=== PATIENT | female | born 1945 ===

== ENCOUNTER 2017-06-06 06:10 | Inpatient (IN) | payer OTHER ==
[2017-06-02 14:33] VITALS: BMI 25.8
[2017-06-06] MEDS ORDERED: Lactated Ringer's 1,000 ML IV ONE ×2 (07:00→16:08)
--- NOTE | 2017-06-06 07:38 | CP.PCM.HP ---
History of Present Illness - History of Present Illness History of Present Illness: Chief Complaint: Left Knee Pain HPI: 71 y/o lady with hx of HTN, Hyperlipidemia and OA, came in for scheduled left TKR. The patient has been suffering from severe left knee pain for many years. She has severe pain on ambulation worst when she goes up and down the stairs. She takes analgesics daily and has had joint injections and physical therapy however despite these her pain continued to worsen so she was referred to Dr Montero and was advised surgery. Present on Admission - Present on Admission Any Indicators Present on Admission: No Review of Systems - Review of Systems All systems: reviewed and no additional remarkable complaints except - Constitutional Constitutional: absent: Fever, Headache - EENT Eyes: absent: Change in Vision Nose/Mouth/Throat: absent: Epistaxis, Nasal Congestion, Nasal Discharge - Cardiovascular Cardiovascular: absent: Chest Pain, Chest Pain at Rest, Chest Pain with Activity , Claudication, Dyspnea on Exertion, Edema - Respiratory Respiratory: absent: Cough, Dyspnea, Dyspnea on Exertion - Gastrointestinal Gastrointestinal: absent: Abdominal Pain, Nausea, Vomiting - Genitourinary Genitourinary: Nocturia, Urinary Frequency. absent: Difficulty Urinating, Dysuria, Flank Pain, Hematuria - Reproductive: Female Reproductive:Female: absent: Abnormal Vaginal Bleeding, Vaginal Odor, Vaginal Pruritis - Musculoskeletal Musculoskeletal: Abnormal Gait, Arthralgias, Limited Range of Motion, Stiffness. absent: Muscle Weakness - Integumentary Integumentary: Change in Pigmentation (lower ext). absent: Rash, Skin Ulcer, Sores - Neurological Neurological: absent: Dizziness, Focal Weakness, Headaches, Lack of Coordination - Psychiatric Psychiatric: absent: Confusion, Depression, Memory Loss - Endocrine Endocrine: absent: Polydipsia, Polyphagia, Polyuria - Hematologic/Lymphatic Hematologic: absent: Easy Bleeding, Easy Bruising Past Patient History - Infectious Disease Hx of Infectious Diseases: None - Tetanus Immunizations Tetanus Immunization: Unknown - Past Medical History & Family History Past Medical History?: Yes Past Family History: Reviewed and not pertinent - Past Social History Smoking Status: Never Smoked Chewing Tobacco Use: No Cigar Use: No Alcohol: Occasional Drugs: Denies Home Situation {Lives}: With Family Domestic Violence: Negative - CARDIAC Hx Cardiac Disorders: Yes Hx Hypercholesterolemia: Yes Hx Hypertension: Yes - PULMONARY Hx Respiratory Disorders: No - NEUROLOGICAL Hx Neurological Disorder: No - HEENT Hx HEENT Problems: No - RENAL Hx Chronic Kidney Disease: No - ENDOCRINE/METABOLIC Hx Endocrine Disorders: No - HEMATOLOGICAL/ONCOLOGICAL Hx Blood Disorders: No - INTEGUMENTARY Hx Dermatological Problems: No - MUSCULOSKELETAL/RHEUMATOLOGICAL Hx Musculoskeletal Disorders: Yes Hx Arthritis: Yes Hx Osteoarthritis: Yes - GASTROINTESTINAL Hx Gastrointestinal Disorders: No - GENITOURINARY/GYNECOLOGICAL Hx Genitourinary Disorders: No - PSYCHIATRIC Hx Psychophysiologic Disorder: No - SURGICAL HISTORY Hx Surgeries: No - ANESTHESIA Hx Anesthesia: No Hx Anesthesia Reactions: No Hx Malignant Hyperthermia: No Has any member of the family had a problem w/ anesthesia?: No Meds Allergies/Adverse Reactions: Allergies Allergy/AdvReac Type Severity Reaction Status Date / Time No Known Allergies Allergy Verified 06/02/17 14:32 Physical Exam - Constitutional Appears: Non-toxic, No Acute Distress - Head Exam Head Exam: ATRAUMATIC, NORMAL INSPECTION, NORMOCEPHALIC - Eye Exam Eye Exam: EOMI, Normal appearance Pupil Exam: NORMAL ACCOMODATION - ENT Exam ENT Exam: Mucous Membranes Moist, Normal External Ear Exam - Neck Exam Neck exam: Positive for: Full Rom. Negative for: Meningismus - Respiratory Exam Respiratory Exam: NORMAL BREATHING PATTERN. absent: Rales, Wheezes, Respiratory Distress - Cardiovascular Exam Cardiovascular Exam: REGULAR RHYTHM, +S1, +S2 - GI/Abdominal Exam GI & Abdominal Exam: Normal Bowel Sounds, Soft. absent: Tenderness - Extremities Exam Extremities exam: Positive for: normal capillary refill, pedal pulses present. Negative for: calf tenderness, full ROM, pedal edema - Back Exam Back exam: FULL ROM. absent: CVA tenderness (L), CVA tenderness (R), paraspinal tenderness, vertebral tenderness - Neurological Exam Neurological exam: Alert, CN II-XII Intact, Oriented x3, Reflexes Normal - Psychiatric Exam Psychiatric exam: Normal Affect, Normal Mood - Skin Skin Exam: Dry, Normal Color, Warm Results - Vital Signs Recent Vital Signs: Last Vital Signs Temp 98.8 F 06/06/17 07:00 Pulse 61 06/06/17 07:00 Resp 18 06/06/17 07:00 BP 102/63 06/06/17 07:00 Pulse Ox 97 06/06/17 07:00 - Labs Labs: Laboratory Results - last 24 hr 06/06/17 06:40 BBK History Checked No verified bt reviewed labs done as outpt UA showed + leukocyte esterase 10WBC - EKG Data EKG Interpreted by: Myself EKG shows normal: Sinus rhythm Rate: Normal Assessment & Plan (1) Primary osteoarthritis of knee Status: Chronic (2) HTN (hypertension) Status: Chronic (3) Hyperlipidemia Status: Chronic (4) UTI (urinary tract infection) Status: Suspected - Assessment and Plan (Free Text) Assessment: 71 y/o lady with hx of HTN, Hyperlipidemia, OA, complains of left knee pain. Failed conservative mgt ( analgesics, joint inj, and Physical therapy ) , scheduled for Left TKR. Urinalysis : moderate leukoesterase, WBC=10, has urinary frequency. (1) Primary osteoarthritis of knee Status: Chronic Plan for Left TKR Ortho : Dr Kylah Corona mgt Physical and Occupational therapy conult Pre op eval done by her PMD : DR Anel Bahena (2) HTN (hypertension) controlled Status: Chronic cont Enalapril (3) Hyperlipidemia Status: Chronic cont statin (4) UTI (urinary tract infection) Status: Suspected UA : mod leukoest, WBC=10, frequency of urination will give dose of IV ceftriaxone Decision To Admit - Pt Status Changed To: Hospital Disposition Of: Inpatient - Admit Certification Admit to Inpatient:: After my assessment, the patient will require hospitalization for at least two midnights. This is because of the severity of symptoms shown, intensity of services needed, and/or the medical risk in this patient being treated as an outpatient. - . Bed Request Type: Med/Surg Admitting Physician: Briana Camacho
[2017-06-06] MEDS ORDERED: cefTRIAXone (Rocephin) 1 gm Inj IVPB ONE (09:00)
[2017-06-06] MEDS ORDERED: Ropivacaine 0.5% 30ML IV ONE (12:58)
[2017-06-06] MEDS ORDERED: Propofol 10 mg/ml Inj (20 ML) ONE (12:59)
[2017-06-06] MEDS ORDERED: Rocuronium 10 mg/ml (5 ml) ONE (12:59)
[2017-06-06] MEDS ORDERED: Lidocaine 4% (Laryng-O-Jet) Kit MM ONE (13:00)
[2017-06-06] MEDS ORDERED: Succinylcholine 200 mg/10 ml Inj IV ONE (13:00)
[2017-06-06] MEDS ORDERED: Phenylephrine 10 mg/ml Inj ONE (13:05)
[2017-06-06] MEDS ORDERED: Dexamethasone 4 mg/1 ml ONE (13:30)
[2017-06-06] MEDS ORDERED: ePHEDrine 50 mg/ml Inj ONE (14:40)
[2017-06-06] MEDS ORDERED: Neostigmine Methylsulfate 3mg/3ml Syringe IV ONE ×2 (14:47→15:02)
[2017-06-06] MEDS ORDERED: Sevoflurane - Inhalation Anesthetic Liq (250 ml) ONE (14:59)
[2017-06-06] MEDS ORDERED: Ergocalciferol 50,000 Intl Units Cap PO SCH (15:15)
[2017-06-06] MEDS ORDERED: HYDROmorphone 0.5 mg/0.5 ml ISec IVP PRN ×2 (16:40→16:56)
--- NOTE | 2017-06-06 16:44 | PCM.ANESB3 ---
Femoral Nerve Block - Femoral Nerve Block Date of Procedure: 06/06/17 Anesthesiologist: frida Pre-Procedure Diagnosis: left TKA Post-Procedure Diagnosis: Left knee OA - Procedure Femoral Nerve Block: The procedure was explained to the patient that it is for the post-operative pain management. Consent was obtained after a thorough discussion with the patient regarding the benefits and possible complications of local anesthetic block of the femoral nerve at the inguinal crease area. The patient was brought to the operating room and standard monitors were applied. Time-out was held with the circulating nurse to confirm the correct surgery and the appropriate block. Under general anesthesia, patient was placed in supine position with fully extended lower extremities and the ____left____ groin exposed. The femoral artery was then carefully palpated. The ultrasound transducer was then applied to this area in the transverse plane and the femoral nerve was visualized lateral to the femoral artery and underneath the fascia iliaca. After thorough identification, the inguinal crease area was prepped with Betadine solution three times and 1 % Lidocaine was injected subcutaneously for topical anesthesia. At this point, a #22 gauge Stimuplex 2-inch needle was inserted immediately lateral to the femoral artery pulse at the inguinal crease and advanced perpendicularly. The needle was inserted to the ultrasound transducer in-plane towards the femoral nerve in a [id number] direction. Needle advancement was performed carefully under direct ultrasound visualization. Nerve stimulator was used and twitch of the quadriceps muscle was obtained at current of __0.6___ MA. After negative aspiration, __2___cc of ___0.5__% ___ropivicaine with 4 mg decadron was injected and this was followed with 10_ cc of ___0.5% ropivicaine . Under ultrasound guidance the local anesthetics were observed spreading below fascia iliaca and around the femoral nerve. The needle was removed intact and sterile dressing was applied. The patient had stable vital signs, was conscious and in no apparent distress. The patient tolerated the femoral nerve block well with stable vital signs and was prepared for subsequent surgery.
--- NOTE | 2017-06-06 16:46 | PCM.ANESB2 ---
Popliteal Nerve Block - Popliteal Nerve Block Date of Procedure: 06/06/17 Anesthesiologist: Delaney Pre-Procedure Diagnosis: Left knee OA Post-Procedure Diagnosis: Same - Procedure Popliteal Nerve Block: This procedure was explained to the patient that it is for post-operative pain management. Consent was obtained after a thorough discussion with the patient regarding the benefits and possible complications of local anesthetic block of the sciatic nerve at the popliteal level. The patient was brought to the operating room and standard monitors are applied. Time-out was held with the circulating nurse to confirm the correct surgery and the appropriate block. Under general anesthesia, patient's operative leg was gently raised and supported and the groove in between the biceps femoris and vastus lateralis muscles was carefully palpated. The skin approximately 8cm above the popliteal crease was then marked. The ultrasound transducer was then applied to the posterior thigh approximately 8cm above the popliteal crease in the transverse plane and the sciatic nerve before its division was visualized lateral to the popliteal artery and in between the bicep femoris and semimembranosus/ semitendinosus muscles. After identification, the lateral portion of the thigh was prepped with Betadine solution three times and Lidocaine 1% was injected subcutaneously for topical anesthesia. At this point, a # 21 gauge Stimuplex insulated 4 inch needle was inserted into pre-marked area and advanced in a perpendicular direction. The needle was inserted above the ultrasound transducer in-plane towards the sciatic nerve in a [id number] direction. Needle advancement was performed carefully under direct ultrasound visualization. Nerve stimulator was used and dorsiflexion of the foot was elicited at a current of ___0.6__ MA. After repeated negative aspiration, ____2_cc of ___0.5__ % __ropivicaine with decadron ____ was injected and this was flowed with __10____ cc of ___0.5___% ropivicaine . Under ultrasound guidance the local anesthetics were observed tenting the epidural sheath and surrounding the roots of the sciatic nerve. The needle was removed intact and sterile dressing was applied. The patient tolerated the popliteal nerve block well with stable vital signs and was subsequently prepared for the surgery.
--- NOTE | 2017-06-06 18:51 | PCM.SURG1 ---
Surgeon's Initial Post Op Note - Surgeon's Notes Surgeon: Kylah Cellophane Press Operator: ZOYA Bird Type of Anesthesia: General Endo Anesthesia Administered By: Dr Baltazar Pre-Operative Diagnosis: Severe tricompartmental O/A L knee Operative Findings: - as above. -loose bodies L knee. -severe synovitis L knee. posterior capsular contracture. lateral patella contracture Post-Operative Diagnosis: as above Operation Performed: L TKR. arthrotomy- excision loose bodies. arthrotomy- posterior capsular release. lateral patella retinacular release. arthrotmy anterior and posterior synovectomy Specimen/Specimens Removed: loose bodies/bone/cartilage Estimated Blood Loss: EBL {In ML}: 150 Blood Products Given: N/A Drains Used: No Drains Post-Op Condition: Good Date of Surgery/Procedure: 06/06/17 Time of Surgery/Procedure: 14:10 (time in room/anesthesia induction time 1305)
[2017-06-06] MEDS ORDERED: Pneumococcal 23-Valent Vaccine IM ONE (20:00)
[2017-06-06] MEDS: ceFAZolin 1 GM in Sodium Chloride 0.9% 100 ML IVPB SCH (21:21)
[2017-06-06] MEDS: Pravastatin Sodium 40 MG TAB PO SCH (21:22)
[2017-06-07] MEDS: Lactated Ringer's 1,000 ML IV SCH ×3 (00:42→16:44)
[2017-06-07] MEDS: ceFAZolin 1 GM in Sodium Chloride 0.9% 100 ML IVPB SCH ×3 (05:19→06:31)
[2017-06-07 07:44] LABS: BASO % 0.1 % (0.0-2.0); HEMOGLOBIN 8.1 g/dL (12.0-16.0); LYMPH # 0.7 K/uL (1.0-4.3); LYMPH % 7.4 % (20.0-40.0); MEAN CELL VOLUME 66.1 fl (81.0-99.0); MEAN CORPUSCULAR HEMOGLOBIN 21.1 pg (27.0-31.0); MONO # 0.7 K/uL (0.0-0.8); MONO % 7.5 % (0.0-10.0); NEUT # 7.9 K/uL (1.8-7.0); NRBC % 0.1 % (0.0-0.0); PLATELET COUNT 157 K/uL (130-400); RBC 3.81 Mil/uL (3.80-5.20); RED CELL DISTRIBUTION WIDTH 15.5 % (11.5-14.5); WHITE BLOOD COUNT 9.3 K/uL (4.8-10.8)
[2017-06-07 08:14] LABS: BLOOD UREA NITROGEN 11 mg/dl (7-17); CALCIUM 8.8 mg/dL (8.4-10.2)
--- NOTE | 2017-06-07 08:42 | PCM.OP ---
Operative Report - Operative Report Date of Surgery/Procedure: 06/06/17 Time of Surgery/Procedure: 13:40 (time in room 12:30) Surgeon: Kylah Marine Steam Fitter: ZOYA Bird/ Hero Barbosa Anesthesia/Sedation: GETA Pre-Operative Diagnosis: Severe O/A l kNEE WITH DEFORMITY AND LOOSE BODIES Post-Operative Diagnosis: ABOPVE. LOOSE BODIES. SYNOVITIS l KNEE - aNT AND POSTERIOR. POSTERIOR capsular contracture. lateral patella contracture Indication for Surgery: svere pain, deformity and inability to ambulate Operative Findings: as above Procedure/Operation Description: L TKR. arthrotmy anterior and posterior synovectomy. arthrotomy excision loose body. posterior capsular release. lateral patella release. computernavigation. Operative procedure: Date 2016/ left knee as the correct knee. Operative procedure after having obtained informed consent, after thoroughly discussing the pros cause risks and benefits of knee replacement arthroplasty, after failure of conservative management one year, after the satisfactory induction of the anesthetic after having identified side and site and procedure and the cortical pause/timeout left lower extremity was prepped and free draped in the usual fashion for knee replacement arthroplasty. 370 mm a 6 inch Esmarch bandage the tourniquet which had been applied was inflated to 350 mmHg. A 16 straight midline approach was made to the knee. The patient has marked deformity with severe varus deformity and loose bodies in the posterior compartment. Skin incision was carried as of the skin subcutaneous tissue. Arthrotomy having been accomplished, dissection was carried around posteromedially to the semimembranosus tendon. Anterior and posterior cruciate ligaments were excised. The tibia was dislocated anteriorly and therte are found to be loose bodies and cystin the posterior compartment. Anterior and posterior synovectomies are accomplished. medial and lateral meniscectomies are accomplished. Anterior and posterior cruciate ligaments are excised. At this point. Navigation is employed. The anterior tibial strut was placed and affixed to the anterior aspect of the tibia. Accelorometer and sensor are applied. The medial malleolus and lateral malleolus are registered and the alignment of the tibial cut is set to 0 varus valgus with a posterior slope of 3. The depth is 1 mm below the more deformed tibial condyle. Tibial osteotomies accomplished and guides to mrotation are the latrasl aspect of the tibial condyle and mid malleolar axis. The guide pin was placed superior to the intracondylar notch; accelorometer and sensor are placed. The patient was found 0 varus valgus mechanical axis and flexion of 0.5. Distal cut was accomplished as the #2 femoral component. Femoral block was placed along the epicondylar axis. Anterior and posterior osteotomies were accomplished chamfer cuts were accomplished and the posterior capular contracture is released./ Loose bodies are removed from the posterior comartment. Notch cutting guiide is placed and the notch is osteotomized. Trial femoral and tibial components were placed with an 18 mm tibial polyethylene. Flexion-extension balance to be excellent. Posterior capsule having been released a lateral patellofemoral retinacular release accomplished as well. attentioin is turned to the patella. Freehand patella osteotomy is accomplished and the patella is sized to 35 mm Reaming is accomplished. trialing is accomplished with femoral, tibial and patella components. balance is found to be excellent. Femur, tibia and patella are prepared, and the femoral, tibial and patella comoneents are cmeneted. position is found to be excellent. closure is in layers with fiber wire, vicryl, subcutaneous vicry and alphonso for skin. Jose morillo compressioin dressing is applied. post op xrays reveal acceptable positin of construct, especially for such a sever deformity. Jose Morillo compression dressing is applied . End OP note for pt Carly Schmitt/ Estimated Blood Loss: 175cc Blood Replaced: 0 Sponge/Instrument Count: correct Drains: 0 Complications: none Specimen: synovium, loose bodies, bone , synovium Discharge & Condition: stable
[2017-06-07 09:04] LABS: GFR AFRICAN-AMERICAN > 60; GFR NON-AFRICAN AMERICAN > 60
[2017-06-07] MEDS: Oxycodone/Acetaminophen 5/325 mg Tab PO PRN ×2 (10:00→21:29)
[2017-06-07 12:56] LABS: BANDS 1 % (0-2); LYMPHOCYTE 10 % (20-50); MONOCYTE 8 % (0-10); NEUTROPHIL 81 % (42-75); PLATELET ESTIMATE NORMAL (NORMAL); TOTAL CELLS COUNTED 100
[2017-06-07 12:57] LABS: ANISOCYTOSIS SLIGHT; HYPOCHROMIC SLIGHT; MICROCYTOSIS MODERATE
[2017-06-07 12:58] LABS: OVALOCYTES SLIGHT; TEARDROP CELLS SLIGHT
--- NOTE | 2017-06-07 13:22 | CP.PCM.PN ---
Subjective - Date & Time of Evaluation Date of Evaluation: 06/07/17 Time of Evaluation: 13:00 - Subjective Subjective: No fevr Pt complains of LLE numbness - pt had nerve block pain controlled no CP no SOB no abd pain Objective - Vital Signs/Intake and Output Vital Signs (last 24 hours): Temp Pulse Resp BP Pulse Ox 98.2 F 78 18 94/63 L 96 06/07/17 09:00 06/07/17 09:00 06/07/17 09:00 06/07/17 09:00 06/07/17 09:00 - Medications Medications: Current Medications Ergocalciferol (Drisdol 50,000 Intl Units Cap) 1 cap PO QWK [facility] Ferrous Sulfate (Feosol) 325 mg PO BID [facility] Last Admin: 06/07/17 09:17 Dose: 325 mg Lactated Ringer's (Lactated Ringer's) 1,000 mls @ 100 mls/hr IV .Q10H [facility] Last Admin: 06/07/17 03:00 Dose: Not Given Oxycodone/Acetaminophen (Percocet 5/325 Mg Tab) 1 tab PO Q4 PRN PRN Reason: Pain, moderate (4-7) Stop: 06/10/17 09:17 Last Admin: 06/07/17 10:00 Dose: 1 tab Pravastatin Sodium (Pravachol) 40 mg PO HS [facility] Last Admin: 06/06/17 21:22 Dose: 40 mg - Labs Labs: 06/07/17 05:00 06/07/17 05:00 - Constitutional Appears: Non-toxic, No Acute Distress - Head Exam Head Exam: ATRAUMATIC, NORMAL INSPECTION, NORMOCEPHALIC - Eye Exam Eye Exam: EOMI, Normal appearance Pupil Exam: NORMAL ACCOMODATION - ENT Exam ENT Exam: Mucous Membranes Moist, Normal External Ear Exam - Neck Exam Neck exam: Positive for: Full Rom. Negative for: Meningismus - Respiratory Exam Respiratory Exam: NORMAL BREATHING PATTERN. absent: Rales, Wheezes, Respiratory Distress - Cardiovascular Exam Cardiovascular Exam: REGULAR RHYTHM, +S1, +S2 - GI/Abdominal Exam GI & Abdominal Exam: Normal Bowel Sounds, Soft. absent: Tenderness - Extremities Exam Extremities exam: Positive for: normal capillary refill, pedal pulses present. Left LLE with dressing, some numbness and decrease motor fxn ( pt had nerve block) - Back Exam Back exam: FULL ROM. absent: CVA tenderness (L), CVA tenderness (R), paraspinal tenderness, vertebral tenderness - Neurological Exam Neurological exam: Alert, CN II-XII Intact, Oriented x3, Reflexes Normal - Psychiatric Exam Psychiatric exam: Normal Affect, Normal Mood - Skin Skin Exam: Dry, Normal Color, Warm Assessment and Plan (1) Primary osteoarthritis of knee Status: Chronic (2) HTN (hypertension) Status: Chronic (3) Hyperlipidemia Status: Chronic (4) UTI (urinary tract infection) Status: Suspected - Assessment and Plan (Free Text) Assessment: 71 y/o lady with hx of HTN, Hyperlipidemia, OA, complains of left knee pain. Failed conservative mgt ( analgesics, joint inj, and Physical therapy ) , scheduled for Left TKR. Urinalysis : moderate leukoesterase, WBC=10, urinary frequency. (1) Primary osteoarthritis of knee s/p Left TKR Ortho : Dr Montero Pain mgt: Percocet Pt had Nerve Block post op -Anesthesia called to re-eval pt Physical and Occupational therapy consult Pre op eval done by her PMD : DR Anel Bahena Received Ancef x 3 doses for abx Prophylaxis (2) HTN (hypertension) controlled Status: Chronic hold Enalapril - BPlow (3) Hyperlipidemia Status: Chronic cont statin (4) UTI (urinary tract infection) Status: Suspected UA : mod leukoest, WBC=10, frequency of urination IV ceftriaxone x 3 days only (5) Anemia, acute blood loss Hgb= 8.1 transfuse 1 unit PRBC Ferrous bid DVT proph: Aspirin bid
--- NOTE | 2017-06-07 14:54 | RAD ---
PROCEDURE: Left Knee Radiographs. HISTORY: Pain. COMPARISON: None. FINDINGS: BONES: Status post total knee replacement. No osseous fracture. Prosthesis grossly intact. Postoperative changes in anterior subcutaneous soft tissues. JOINTS: As above JOINT EFFUSION: None. OTHER FINDINGS: None. IMPRESSION: Left total knee replacement.
[2017-06-07] MEDS: Pravastatin Sodium 40 MG TAB PO SCH (21:27)
[2017-06-08 00:08] VITALS: RESP 20
[2017-06-08 07:39] LABS: HEMOGLOBIN 8.9 g/dL (12.0-16.0); MEAN CELL VOLUME 68.4 fl (81.0-99.0); MEAN CORPUSCULAR HEMOGLOBIN 22.5 pg (27.0-31.0); MEAN CORPUSCULAR HGB CONC 32.9 g/dL (33.0-37.0); RBC 3.93 Mil/uL (3.80-5.20); RED CELL DISTRIBUTION WIDTH 17.8 % (11.5-14.5); WHITE BLOOD COUNT 9.2 K/uL (4.8-10.8)
[2017-06-08 07:45] VITALS: BP 105/66; PULSE 78; TEMP 99; O2SAT 96
[2017-06-08] MEDS: Oxycodone/Acetaminophen 5/325 mg Tab PO PRN ×2 (08:05→12:49)
--- NOTE | 2017-06-08 10:41 | CP.PCM.DIS ---
Provider - Provider Date of Admission: 06/06/17 17:34 Attending physician: Briana Camacho MD Primary care physician: Uriah Montero III, MD Consults: Ortho consult Anesthesiology Time Spent in preparation of Discharge (in minutes): 20 Hospital Course - Lab Results Lab Results: Most Recent Lab Values WBC 9.2 K/uL (4.8-10.8) 06/08/17 06:20 RBC 3.93 Mil/uL (3.80-5.20) 06/08/17 06:20 Hgb 8.9 g/dL (12.0-16.0) L 06/08/17 06:20 Hct 26.9 % (34.0-47.0) L 06/08/17 06:20 MCV 68.4 fl (81.0-99.0) L D 06/08/17 06:20 MCH 22.5 pg (27.0-31.0) L 06/08/17 06:20 MCHC 32.9 g/dL (33.0-37.0) L 06/08/17 06:20 RDW 17.8 % (11.5-14.5) H 06/08/17 06:20 Plt Count 139 K/uL (130-400) 06/08/17 06:20 MPV 8.0 fl (7.2-11.7) 06/07/17 05:00 Neut % (Auto) 85.0 % (50.0-75.0) H 06/07/17 05:00 Lymph % (Auto) 7.4 % (20.0-40.0) L 06/07/17 05:00 [place] % (Auto) 7.5 % (0.0-10.0) 06/07/17 05:00 Eos % (Auto) 0.0 % (0.0-4.0) 06/07/17 05:00 Baso % (Auto) 0.1 % (0.0-2.0) 06/07/17 05:00 Neut # 7.9 K/uL (1.8-7.0) H 06/07/17 05:00 Lymph # 0.7 K/uL (1.0-4.3) L 06/07/17 05:00 [place] # 0.7 K/uL (0.0-0.8) 06/07/17 05:00 Eos # 0.0 K/uL (0.0-0.7) 06/07/17 05:00 Baso # 0.0 K/uL (0.0-0.2) 06/07/17 05:00 Neutrophils % (Manual) 81 % (42-75) H 06/07/17 05:00 Band Neutrophils % 1 % (0-2) 06/07/17 05:00 Lymphocytes % (Manual) 10 % (20-50) L 06/07/17 05:00 Monocytes % (Manual) 8 % (0-10) 06/07/17 05:00 Platelet Estimate Normal (NORMAL) 06/07/17 05:00 Hypochromasia (manual) Slight 06/07/17 05:00 Anisocytosis (manual) Slight 06/07/17 05:00 Microcytosis (manual) Moderate 06/07/17 05:00 Tear Drop Cells Slight 06/07/17 05:00 Ovalocytes Slight 06/07/17 05:00 Sodium 138 mmol/l (132-148) 06/07/17 05:00 Potassium 3.9 MMOL/L (3.6-5.0) 06/07/17 05:00 Chloride 101 mmol/L (98-107) 06/07/17 05:00 Carbon Dioxide 26 mmol/L (22-30) 06/07/17 05:00 Anion Gap 15 (10-20) 06/07/17 05:00 BUN 11 mg/dl (7-17) 06/07/17 05:00 Creatinine 0.7 mg/dL (0.7-1.2) 06/07/17 05:00 Est GFR ( Amer) > 60 06/07/17 05:00 Est GFR (Non-Af Amer) > 60 06/07/17 05:00 Random Glucose 143 mg/dL (65-105) H 06/07/17 05:00 Calcium 8.8 mg/dL (8.4-10.2) 06/07/17 05:00 Blood Type A POSITIVE 06/06/17 06:40 Blood Type Confirm A POSITIVE 06/06/17 08:00 Antibody Screen Negative 06/06/17 06:40 Crossmatch See Detail 06/06/17 06:40 BBK History Checked No verified bt 06/06/17 06:40 - Hospital Course Hospital Course: 71 y/o lady with hx of HTN, Hyperlipidemia, OA, complains of left knee pain. Failed conservative mgt ( analgesics, joint inj, and Physical therapy ) , scheduled for Left TKR. She underwent Left TKR . Her Urinalysis showed moderate leukoesterase, WBC=10, urinary frequency so was given ANCEF x 3 DOSES AND ROCEPHIN 1 G IV 3 DAYS Post op she developed acute blood loss anemia , was transfused with 1 unit PRBC and started on ferrous sulfate PO Pt eval appreciated Patient to be discharged to [facility] today Follow up with Dr. Montero in 1 week 1. Primary osteoarthritis of knee s/p Left TKR Ortho : Dr Montero Pain mgt: Percocet Physical and Occupational therapy consult Pre op eval done by her PMD : DR Anel Bahena Received Ancef x 3 doses for abx Prophylaxis (2) HTN (hypertension) controlled Chronic held Enalapril due to low BP (3) Hyperlipidemia Chronic cont statin (4) UTI (urinary tract infection) Suspected UA : mod leukoest, WBC=10, frequency of urination IV ceftriaxone x 3 days only (5) Anemia, acute blood loss Hgb= 8.1 transfused 1 unit PRBC Ferrous bid DVT proph: Aspirin bid Discharge Exam - Head Exam Head Exam: ATRAUMATIC, NORMAL INSPECTION, NORMOCEPHALIC - Eye Exam Eye Exam: EOMI, Normal appearance, PERRL Pupil Exam: NORMAL ACCOMODATION - ENT Exam ENT Exam: Mucous Membranes Moist, Normal Exam - Neck Exam Neck exam: Full Rom, Normal Inspection - Respiratory Exam Respiratory Exam: Clear to PA & Lateral, NORMAL BREATHING PATTERN. absent: Rales, Rhonchi, Wheezes - Cardiovascular Exam Cardiovascular Exam: REGULAR RHYTHM, RRR, +S1, +S2. absent: JVD - GI/Abdominal Exam GI & Abdominal Exam: Normal Bowel Sounds, Soft, Unremarkable. absent: Distended , Guarding, Tenderness - Rectal Exam Rectal Exam: Deferred - Extremities Exam Extremities exam: pedal pulses present Additional comments: left knee surgical incision intact edema to LLE - Back Exam Back exam: NORMAL INSPECTION - Neurological Exam Neurological exam: Alert, CN II-XII Intact, Oriented x3, Reflexes Normal - Psychiatric Exam Psychiatric exam: Normal Affect, Normal Mood - Skin Skin Exam: Dry, Normal Color, Warm Discharge Plan - Follow Up Plan Condition: GOOD Disposition: TRANSF TO SNF Patient education suggested?: Yes Instructions: Knee Replacement (DC) Referrals: Uriah Montero III, MD [Primary Care Provider] -
--- NOTE | 2017-06-08 12:54 | CP.PCM.PN ---
Subjective - Date & Time of Evaluation Date of Evaluation: 06/08/17 Time of Evaluation: 12:45 - Subjective Subjective: 71 y/o woman s/p left TKA POD #1 complaining of some pain. Objective - Vital Signs/Intake and Output Vital Signs (last 24 hours): Temp Pulse Resp BP Pulse Ox 99 F 78 20 105/66 96 06/08/17 09:00 06/08/17 09:00 06/08/17 09:00 06/08/17 09:00 06/08/17 09:00 - Medications Medications: Current Medications Aspirin (Ecotrin) 81 mg PO BID [facility] Last Admin: 06/08/17 08:10 Dose: 81 mg Ergocalciferol (Drisdol 50,000 Intl Units Cap) 1 cap PO QWK [facility] Ferrous Sulfate (Feosol) 325 mg PO BID [facility] Last Admin: 06/08/17 08:10 Dose: 325 mg Lactated Ringer's (Lactated Ringer's) 1,000 mls @ 100 mls/hr IV .Q10H [facility] Last Admin: 06/07/17 16:44 Dose: Not Given Ceftriaxone Sodium 1 gm/ (Sodium Chloride) 100 mls @ 100 mls/hr IVPB DAILY [facility] Last Admin: 06/08/17 08:11 Dose: 100 mls/hr Oxycodone/Acetaminophen (Percocet 5/325 Mg Tab) 1 tab PO Q4 PRN PRN Reason: Pain, moderate (4-7) Stop: 06/10/17 09:17 Last Admin: 06/08/17 08:05 Dose: 1 tab Pravastatin Sodium (Pravachol) 40 mg PO HS [facility] Last Admin: 06/07/17 21:27 Dose: 40 mg - Labs Labs: 06/08/17 06:20 06/07/17 05:00 - Neurological Exam Neuro motor strength exam: Left Lower Extremity: 5 (flexion and extension of knee, dorsifelxion and plantarflexion of foot, inversion and eversion of foot and sensation below the knee all fully intact.) Assessment and Plan - Assessment and Plan (Free Text) Assessment: 71 y/o woman POD #1 LTKA Plan: Peripheral nerve blocks have worn off. Full 5/5 strength of left knee and foot full sensation of left leg. Will continue current pain regimen.
== END 2017-06-08 15:39 | DRG 470 ==
LOC: H.OPSURG 06:10 → H.MEDSURG1 17:34
PROVIDERS: ADMIT Internal Medicine; ATTEND Internal Medicine
PROC: 3E0234Z Introduction of Serum, Toxoid and Vaccine into Muscle, Percutaneous Approach (ICD-10-PCS; 2017-06-06)
PROC: 0SRD0J9 Replacement of Left Knee Joint with Synthetic Substitute, Cemented, Open Approach (ICD-10-PCS; principal; 2017-06-06 14:10)
PROC: 3E0T3BZ Introduction of Anesthetic Agent into Peripheral Nerves and Plexi, Percutaneous Approach (ICD-10-PCS; 2017-06-06 14:10)
PROC: 3E0T33Z Introduction of Anti-inflammatory into Peripheral Nerves and Plexi, Percutaneous Approach (ICD-10-PCS; 2017-06-06 14:10)
PROC: 30233N1 Transfusion of Nonautologous Red Blood Cells into Peripheral Vein, Percutaneous Approach (ICD-10-PCS; 2017-06-07)
PROC: F07Z9FZ Gait Training/Functional Ambulation Treatment using Assistive, Adaptive, Supportive or Protective Equipment (ICD-10-PCS; 2017-06-07)
DX: M17.12 Unilateral primary osteoarthritis, left knee (principal); D62 Acute posthemorrhagic anemia; N39.0 Urinary tract infection, site not specified; M65.862 Other synovitis and tenosynovitis, left lower leg; M23.42 Loose body in knee, left knee; I10 Essential (primary) hypertension; E78.5 Hyperlipidemia, unspecified; E78.00 Pure hypercholesterolemia, unspecified; Z23 Encounter for immunization

== ENCOUNTER 2018-03-23 07:10 | Inpatient (IN) | payer OTHER ==
[2018-03-23] MEDS ORDERED: Absorbable Gelatin Sponge Size 100 ONE (07:17)
[2018-03-23] MEDS ORDERED: Bacitracin Ointment 30 GM TUBE ONE (07:17)
[2018-03-23] MEDS ORDERED: Thrombin Topical 5,000 Int Units Spray Kit ONE (07:17)
[2018-03-23] MEDS ORDERED: Sevoflurane - Inhalation Anesthetic Liq (250 ml) ONE (07:32)
[2018-03-23 07:51] VITALS: BMI 29.2
[2018-03-23] MEDS ORDERED: Propofol 10 mg/ml Inj (20 ML) ONE (08:04)
[2018-03-23] MEDS ORDERED: Succinylcholine 200 mg/10 ml Inj IV ONE (08:04)
[2018-03-23] MEDS ORDERED: Lidocaine 4% (Laryng-O-Jet) Kit MM ONE (08:04)
[2018-03-23] MEDS ORDERED: Midazolam 2 MG/2 ML VIAL ONE (08:04)
[2018-03-23] MEDS ORDERED: Lidocaine 1% 5ml Abboject IV ONE (08:05)
--- NOTE | 2018-03-23 08:06 | CP.PCM.HP ---
History of Present Illness - History of Present Illness History of Present Illness: 72 y/o female with PMH HTN, Dyslipidemia and OA presented to [facility] for scheduled right TKR. As per patient she has been having progressive , worsening pain to right knee , severe with ambulation. She has failed outpatient treatment with pain medications, PT and knee injections. She was seen by Dr. Montero in the office who recommended right TKR. She has medical clearance in the chart by her PMD At present feeling well, denies any CP., SOB, palpitations, PND, orthopnea, urinary sx or changes in bowel movements Complains of pain to right knee even at rest dull, 4/10. Allergies ; NKDA PMH ; HTN, Dyslipidemia, OA Medications: Enalapril, Atorvastatin,Dulcolax Surgery; Left TKR Family history; Mother had stroke, Father had depression Social history ; Lives with daughter in [facility], does not work, , had 8 children ( 7 living ),does not smoke , social drinker , denies drug abuse walks with walker and cane when she goes out Code status; Full surrogate decision maker : daughter Lillie VAZQUEZ; 14 point review of system negative except above Present on Admission - Present on Admission Any Indicators Present on Admission: No Review of Systems - Review of Systems All systems: reviewed and no additional remarkable complaints except Past Patient History - Infectious Disease Hx of Infectious Diseases: None - Tetanus Immunizations Tetanus Immunization: Unknown - Past Medical History & Family History Past Medical History?: Yes - Past Social History Smoking Status: Never Smoked - CARDIAC Hx Cardiac Disorders: Yes Hx Hypercholesterolemia: Yes Hx Hypertension: Yes - PULMONARY Hx Respiratory Disorders: No - NEUROLOGICAL Hx Neurological Disorder: No - HEENT Hx HEENT Problems: No - RENAL Hx Chronic Kidney Disease: No - ENDOCRINE/METABOLIC Hx Endocrine Disorders: No - HEMATOLOGICAL/ONCOLOGICAL Hx Blood Disorders: No - INTEGUMENTARY Hx Dermatological Problems: No - MUSCULOSKELETAL/RHEUMATOLOGICAL Hx Musculoskeletal Disorders: Yes Hx Arthritis: Yes Hx Osteoarthritis: Yes - GASTROINTESTINAL Hx Gastrointestinal Disorders: No - GENITOURINARY/GYNECOLOGICAL Hx Genitourinary Disorders: No - PSYCHIATRIC Hx Psychophysiologic Disorder: No - SURGICAL HISTORY Hx Surgeries: Yes Hx Joint Replacement: Yes (left knee) - ANESTHESIA Hx Anesthesia: Yes Hx Anesthesia Reactions: No Hx Malignant Hyperthermia: No Meds Allergies/Adverse Reactions: Allergies Allergy/AdvReac Type Severity Reaction Status Date / Time No Known Allergies Allergy Verified 06/02/17 14:32 Physical Exam - Constitutional Appears: Non-toxic, No Acute Distress - Head Exam Head Exam: ATRAUMATIC, NORMAL INSPECTION, NORMOCEPHALIC - Eye Exam Eye Exam: EOMI, Normal appearance, PERRL Pupil Exam: NORMAL ACCOMODATION - ENT Exam ENT Exam: Mucous Membranes Moist, Normal Exam - Neck Exam Neck exam: Positive for: Full Rom, Normal Inspection - Respiratory Exam Respiratory Exam: Clear to Auscultation Bilateral, NORMAL BREATHING PATTERN. absent: Rales, Rhonchi, Wheezes - Cardiovascular Exam Cardiovascular Exam: REGULAR RHYTHM, RRR, +S1, +S2. absent: JVD - GI/Abdominal Exam GI & Abdominal Exam: Normal Bowel Sounds, Soft. absent: Distended, Guarding, Rebound, Tenderness - Rectal Exam Rectal Exam: Deferred - Extremities Exam Extremities exam: Positive for: normal capillary refill, normal inspection, pedal pulses present. Negative for: calf tenderness, pedal edema Additional comments: left knee scar + - Back Exam Back exam: NORMAL INSPECTION - Neurological Exam Neurological exam: Alert, CN II-XII Intact, Oriented x3, Reflexes Normal - Psychiatric Exam Psychiatric exam: Normal Affect, Normal Mood - Skin Skin Exam: Dry, Intact, Normal Color, Warm Assessment & Plan - Assessment and Plan (Free Text) Assessment: 72 y/o female with PMH HTN, Dyslipidemia and OA presented to [facility] for scheduled right TKR. As per patient she has been having progressive , worsening pain to right knee , severe with ambulation. She has failed outpatient treatment with pain medications, PT and knee injections. She was seen by Dr. Montero in the office who recommended right TKR. She has medical clearance in the chart by her PMD At present feeling well, denies any CP., SOB, palpitations, PND, orthopnea, urinary sx or changes in bowel movements Complains of pain to right knee even at rest dull, 02/21. 1. Right knee OA will admit patient for schedule right TKR with Dr. Montero Ortho consult Medical clearance in the chart UA noticed to have moderate Le and WBC. Will start IV rocephin ( ortho is aware) NPO for now DVT prophylaxis to be started post op[ as per ortho 2.HTN resume home medications 3. Dyslipidemia on statin 4. DVT prophylaxis SCD As per ortho
[2018-03-23] MEDS ORDERED: Phenylephrine 10 mg/ml Inj ONE (08:07)
[2018-03-23] MEDS ORDERED: Rocuronium 10 mg/ml (5 ml) ONE ×2 (08:07→12:16)
[2018-03-23 08:53] LABS: BASO % 0.5 % (0.0-2.0); EOS # 0.1 K/uL (0.0-0.7); EOS % 2.2 % (0.0-4.0); HEMOGLOBIN 10.9 g/dL (12.0-16.0); LYMPH # 1.1 K/uL (1.0-4.3); LYMPH % 22.5 % (20.0-40.0); MEAN CELL VOLUME 66.1 fl (81.0-99.0); MEAN CORPUSCULAR HEMOGLOBIN 21.1 pg (27.0-31.0); MEAN CORPUSCULAR HGB CONC 31.9 g/dL (33.0-37.0); MONO # 0.5 K/uL (0.0-0.8); MONO % 9.8 % (0.0-10.0); NEUT # 3.3 K/uL (1.8-7.0); NRBC % 0.2 % (0.0-0.0); RBC 5.17 Mil/uL (3.80-5.20); RED CELL DISTRIBUTION WIDTH 15.1 % (11.5-14.5); WHITE BLOOD COUNT 5.1 K/uL (4.8-10.8)
[2018-03-23 08:57] LABS: INR 1.1 (0.9-1.2); PARTIAL THROMBOPLASTIN TIME 35.1 Seconds (25.6-37.1); PROTHROMBIN TIME 12.1 Seconds (9.8-13.1)
[2018-03-23 08:58] LABS: BLOOD UREA NITROGEN 11 mg/dl (7-17); CALCIUM 9.4 mg/dL (8.4-10.2); GFR AFRICAN-AMERICAN > 60; GFR NON-AFRICAN AMERICAN > 60
[2018-03-23 09:07] LABS: SQUAMOUS EPITHIAL 1 /hpf (0-5); URINE BILIRUBIN NEGATIVE (NEGATIVE); URINE BLOOD MODERATE (NEGATIVE); URINE CLARITY SLIGHTY-CLOUDY (Clear); URINE COLOR YELLOW (YELLOW); URINE GLUCOSE (UA) NEG (Normal); URINE LEUKOCYTE ESTERASE TRACE Leu/uL (Negative); URINE PROTEIN NEGATIVE (NEGATIVE); URINE UROBILINOGEN 0.2-1.0 mg/dL (0.2-1.0)
[2018-03-23] MEDS ORDERED: cefTRIAXone (Rocephin) 1 gm Inj IVPB ONE (09:15)
--- NOTE | 2018-03-23 09:29 | CP.PCM.CON ---
History of Present Illness - History of Present Illness History of Present Illness: Patient is a 72 y/o female with h/o HTN who presents to [facility] for elective R TKA. The patient has had R knee pain for many years which has progressively worsened over the past few months. The pain is severe, dull and aching in quality. The pain has hindered her from performing her usual daily activities suchh as walking, standing and climbing stairs. She has failed conservative management with PT, oral meds and intra-articular injections. She has history of successful L TKA performed by Dr. Montero. She denies any radiation of pain, numbness or tingling. She denies CP/SOB/N/V/D/fever/JORDAN/dysuria/melena. Review of Systems - Review of Systems All systems: reviewed and no additional remarkable complaints except Review of Systems: as per HPI Past Patient History - Infectious Disease Hx of Infectious Diseases: None - Tetanus Immunizations Tetanus Immunization: Unknown - Past Medical History & Family History Past Medical History?: Yes Past Family History: Reviewed and not pertinent - Past Social History Smoking Status: Never Smoked Alcohol: None Drugs: Denies - CARDIAC Hx Cardiac Disorders: Yes Hx Hypercholesterolemia: Yes Hx Hypertension: Yes - PULMONARY Hx Respiratory Disorders: No - NEUROLOGICAL Hx Neurological Disorder: No - HEENT Hx HEENT Problems: No - RENAL Hx Chronic Kidney Disease: No - ENDOCRINE/METABOLIC Hx Endocrine Disorders: No - HEMATOLOGICAL/ONCOLOGICAL Hx Blood Disorders: No Hx Blood Transfusions: No - INTEGUMENTARY Hx Dermatological Problems: No - MUSCULOSKELETAL/RHEUMATOLOGICAL Hx Musculoskeletal Disorders: Yes Hx Arthritis: Yes Hx Osteoarthritis: Yes - GASTROINTESTINAL Hx Gastrointestinal Disorders: No - GENITOURINARY/GYNECOLOGICAL Hx Genitourinary Disorders: No - PSYCHIATRIC Hx Emotional Abuse: No Hx Physical Abuse: No - SURGICAL HISTORY Hx Surgeries: Yes Hx Joint Replacement: Yes (left knee) - ANESTHESIA Hx Anesthesia: Yes Hx Anesthesia Reactions: No Hx Malignant Hyperthermia: No Has any member of the family had a problem w/ anesthesia?: No Meds Allergies/Adverse Reactions: Allergies Allergy/AdvReac Type Severity Reaction Status Date / Time seasonal Allergy SNEEZING Uncoded 03/23/18 08:19 - Medications Medications: Current Medications Acetaminophen (Tylenol 325mg Tab) 650 mg PO Q6 PRN PRN Reason: Fever >100.4 F Docusate Sodium (Colace) 100 mg PO BID [facility] Enoxaparin Sodium (Lovenox) 40 mg SC DAILY [facility] PRN Reason: Protocol Sodium Chloride (Sodium Chloride 0.9%) 1,000 mls @ 100 mls/hr IV .Q10H [facility] Ceftriaxone Sodium 1 gm/ (Sodium Chloride) 100 mls @ 100 mls/hr IVPB DAILY [facility] PRN Reason: Protocol Ondansetron HCl (Zofran Inj) 4 mg IVP Q6 PRN PRN Reason: Nausea/Vomiting Pantoprazole Sodium (Protonix Ec Tab) 40 mg PO DAILY [facility] Potassium Chloride (Klor-Con 10) 10 meq PO DAILY [facility] Pravastatin Sodium (Pravachol) 40 mg PO HS [facility] Physical Exam - Constitutional Appears: No Acute Distress - Head Exam Head Exam: ATRAUMATIC, NORMOCEPHALIC - Eye Exam Eye Exam: EOMI, Normal appearance, PERRL - ENT Exam ENT Exam: Mucous Membranes Moist, Normal Exam - Respiratory Exam Respiratory Exam: Clear to Auscultation Bilateral, NORMAL BREATHING PATTERN - Cardiovascular Exam Cardiovascular Exam: REGULAR RHYTHM - GI/Abdominal Exam GI & Abdominal Exam: Normal Bowel Sounds, Soft - Extremities Exam Additional comments: R knee: mild swelling and tenderness, no lesions ROM 0-120deg sensation intact SP/DP/TN motor intact EHL/FHL/TA/g/q/HS/HF pedal pulses intact Results - Vital Signs Recent Vital Signs: Last Vital Signs Temp 98.1 F 03/23/18 08:23 Pulse 64 03/23/18 08:28 Resp 18 03/23/18 08:23 BP 115/67 03/23/18 08:23 Pulse Ox 99 03/23/18 08:23 - Labs Result Diagrams: 03/23/18 07:50 03/23/18 07:50 Labs: Laboratory Results - last 24 hr 03/23/18 03/23/18 03/23/18 07:50 07:50 07:50 WBC 5.1 RBC 5.17 Hgb 10.9 L D Hct 34.2 MCV 66.1 L D MCH 21.1 L MCHC 31.9 L RDW 15.1 H Plt Count 173 MPV 8.0 Neut % (Auto) 65.0 Lymph % (Auto) 22.5 [place] % (Auto) 9.8 Eos % (Auto) 2.2 Baso % (Auto) 0.5 Neut # (Auto) 3.3 Lymph # (Auto) 1.1 [place] # (Auto) 0.5 Eos # (Auto) 0.1 Baso # (Auto) 0.0 PT 12.1 INR 1.1 APTT 35.1 Sodium Potassium Chloride Carbon Dioxide Anion Gap BUN Creatinine Est GFR ( Amer) Est GFR (Non-Af Amer) Random Glucose Calcium Urine Color Urine Clarity Urine pH Ur Specific [place] Urine Protein Urine Glucose (UA) Urine Ketones Urine Blood Urine Nitrate Urine Bilirubin Urine Urobilinogen Ur Leukocyte Esterase Urine RBC (Auto) Urine Microscopic WBC Ur Squamous Epith Cells Hyaline Casts BBK History Checked Patient has bt 03/23/18 03/23/18 07:50 07:50 WBC RBC Hgb Hct MCV MCH MCHC RDW Plt Count MPV Neut % (Auto) Lymph % (Auto) [place] % (Auto) Eos % (Auto) Baso % (Auto) Neut # (Auto) Lymph # (Auto) [place] # (Auto) Eos # (Auto) Baso # (Auto) PT INR APTT Sodium 142 Potassium 3.6 Chloride 101 Carbon Dioxide 26 Anion Gap 19 BUN 11 Creatinine 0.6 L Est GFR ( Amer) > 60 Est GFR (Non-Af Amer) > 60 Random Glucose 103 Calcium 9.4 Urine Color Yellow Urine Clarity Slighty-cloudy Urine pH 6.0 Ur Specific [place] 1.011 Urine Protein Negative Urine Glucose (UA) Neg Urine Ketones Negative Urine Blood Moderate Urine Nitrate Negative Urine Bilirubin Negative Urine Urobilinogen 0.2-1.0 Ur Leukocyte Esterase Trace Urine RBC (Auto) 2 Urine Microscopic WBC 1 Ur Squamous Epith Cells 1 Hyaline Casts 3-5 H BBK History Checked Assessment & Plan (1) Primary osteoarthritis of knee Assessment and Plan: -OR today for R TKA -Patient was explained the potential risks as well as benefits in detail. Patient expresses understanding and agrees to proceed. -above d/w Dr. Montero in agreement Status: Chronic - Date & Time Date: 03/23/18 Time: 09:28
--- NOTE | 2018-03-23 10:36 | CP.PCM.CON ---
History of Present Illness - History of Present Illness History of Present Illness: THE PATIENT IS A 72 YEAR OLD FEMALE WHO IS ADMITTED TODAY VIA SAME DAY SURGERY FOR A RIGHT KNEE REPLACEMENT BY DR KAUR FOR SEVERE OA THAT FAILED PAIN MEDICINES, KNEE INJECTIONS AND PHYSICAL THERAPY. SHE HAD A LEFT KNEE REPLACEMENT IN 2017. CARDIOLOGY WAS ASKED TO SEE HER PRE-OPERATIVELY FOR CLEARANCE AND TO FOLLOW HER IN THE HOSPITAL, SHE HAS A HISTORY OF HYPERTENSION AND HYPERLIPIDEMIA. SHE DENIES ANY KNOWN HEART PROBLEMS AND DENIES CHEST PAIN. Past Patient History - Infectious Disease Hx of Infectious Diseases: None - Tetanus Immunizations Tetanus Immunization: Unknown - Past Medical History & Family History Past Medical History?: Yes - Past Social History Smoking Status: Never Smoked - CARDIAC Hx Cardiac Disorders: Yes Hx Hypercholesterolemia: Yes Hx Hypertension: Yes - PULMONARY Hx Respiratory Disorders: No - NEUROLOGICAL Hx Neurological Disorder: No - HEENT Hx HEENT Problems: No - RENAL Hx Chronic Kidney Disease: No - ENDOCRINE/METABOLIC Hx Endocrine Disorders: No - HEMATOLOGICAL/ONCOLOGICAL Hx Blood Disorders: No Hx Blood Transfusions: No - INTEGUMENTARY Hx Dermatological Problems: No - MUSCULOSKELETAL/RHEUMATOLOGICAL Hx Musculoskeletal Disorders: Yes Hx Arthritis: Yes Hx Osteoarthritis: Yes - GASTROINTESTINAL Hx Gastrointestinal Disorders: No - GENITOURINARY/GYNECOLOGICAL Hx Genitourinary Disorders: No - PSYCHIATRIC Hx Emotional Abuse: No Hx Physical Abuse: No - SURGICAL HISTORY Hx Surgeries: Yes Hx Joint Replacement: Yes (left knee) - ANESTHESIA Hx Anesthesia: Yes Hx Anesthesia Reactions: No Hx Malignant Hyperthermia: No Has any member of the family had a problem w/ anesthesia?: No Meds Allergies/Adverse Reactions: Allergies Allergy/AdvReac Type Severity Reaction Status Date / Time seasonal Allergy SNEEZING Uncoded 03/23/18 08:19 - Medications Medications: Current Medications Acetaminophen (Tylenol 325mg Tab) 650 mg PO Q6 PRN PRN Reason: Fever >100.4 F Docusate Sodium (Colace) 100 mg PO BID [facility] Enoxaparin Sodium (Lovenox) 40 mg SC DAILY [facility] PRN Reason: Protocol Sodium Chloride (Sodium Chloride 0.9%) 1,000 mls @ 100 mls/hr IV .Q10H [facility] Ceftriaxone Sodium 1 gm/ (Sodium Chloride) 100 mls @ 100 mls/hr IVPB DAILY [facility] PRN Reason: Protocol Ondansetron HCl (Zofran Inj) 4 mg IVP Q6 PRN PRN Reason: Nausea/Vomiting Pantoprazole Sodium (Protonix Ec Tab) 40 mg PO DAILY [facility] Potassium Chloride (Klor-Con 10) 10 meq PO DAILY [facility] Pravastatin Sodium (Pravachol) 40 mg PO HS [facility] Physical Exam - Respiratory Exam Respiratory Exam: Clear to Auscultation Bilateral - Cardiovascular Exam Cardiovascular Exam: REGULAR RHYTHM, +S1, +S2 - Extremities Exam Additional comments: RIGHT KNEE TENDERNESS - Additional Findings Additional findings: EKG NSR, LEFT AXIS DEVIATION OTHER LABS REVIEWED Results - Vital Signs Recent Vital Signs: Last Vital Signs Temp 98.1 F 03/23/18 08:23 Pulse 64 03/23/18 08:28 Resp 18 03/23/18 08:23 BP 115/67 03/23/18 08:23 Pulse Ox 99 03/23/18 08:23 - Labs Result Diagrams: 03/23/18 07:50 03/23/18 07:50 Labs: Laboratory Results - last 24 hr 03/23/18 03/23/18 03/23/18 07:50 07:50 07:50 WBC 5.1 RBC 5.17 Hgb 10.9 L D Hct 34.2 MCV 66.1 L D MCH 21.1 L MCHC 31.9 L RDW 15.1 H Plt Count 173 MPV 8.0 Neut % (Auto) 65.0 Lymph % (Auto) 22.5 [place] % (Auto) 9.8 Eos % (Auto) 2.2 Baso % (Auto) 0.5 Neut # (Auto) 3.3 Lymph # (Auto) 1.1 Saline # (Auto) 0.5 Eos # (Auto) 0.1 Baso # (Auto) 0.0 PT 12.1 INR 1.1 APTT 35.1 Sodium Potassium Chloride Carbon Dioxide Anion Gap BUN Creatinine Est GFR ( Amer) Est GFR (Non-Af Amer) Random Glucose Calcium Urine Color Urine Clarity Urine pH Ur Specific [place] Urine Protein Urine Glucose (UA) Urine Ketones Urine Blood Urine Nitrate Urine Bilirubin Urine Urobilinogen Ur Leukocyte Esterase Urine RBC (Auto) Urine Microscopic WBC Ur Squamous Epith Cells Hyaline Casts Blood Type A POSITIVE Antibody Screen Negative BBK History Checked Patient has bt 03/23/18 03/23/18 07:50 07:50 WBC RBC Hgb Hct MCV MCH MCHC RDW Plt Count MPV Neut % (Auto) Lymph % (Auto) Saline % (Auto) Eos % (Auto) Baso % (Auto) Neut # (Auto) Lymph # (Auto) Saline # (Auto) Eos # (Auto) Baso # (Auto) PT INR APTT Sodium 142 Potassium 3.6 Chloride 101 Carbon Dioxide 26 Anion Gap 19 BUN 11 Creatinine 0.6 L Est GFR ( Amer) > 60 Est GFR (Non-Af Amer) > 60 Random Glucose 103 Calcium 9.4 Urine Color Yellow Urine Clarity Slighty-cloudy Urine pH 6.0 Ur Specific [place] 1.011 Urine Protein Negative Urine Glucose (UA) Neg Urine Ketones Negative Urine Blood Moderate Urine Nitrate Negative Urine Bilirubin Negative Urine Urobilinogen 0.2-1.0 Ur Leukocyte Esterase Trace Urine RBC (Auto) 2 Urine Microscopic WBC 1 Ur Squamous Epith Cells 1 Hyaline Casts 3-5 H Blood Type Antibody Screen BBK History Checked Assessment & Plan - Assessment and Plan (Free Text) Assessment: SEVERE RIGHT KNEE OSTEOARTHRITIS HYPERTENSION HYPERLIPIDEMIA
[2018-03-23] MEDS ORDERED: Tranexamic Acid 1,000 MG in Sodium Chloride 0.9% 100 ML IVPB ONE (10:51)
[2018-03-23] MEDS ORDERED: Lactated Ringer's 1,000 ML IV ONE ×2 (11:25→14:00)
--- NOTE | 2018-03-23 12:08 | CARD ---
APPROVED REPORT EKG Measurement Heart [id number] <Conclusion> Normal sinus rhythm Left axis deviation Abnormal ECG
[2018-03-23] MEDS ORDERED: Bacitracin OINT 15GM TOP ONE (13:37)
[2018-03-23] MEDS ORDERED: Morphine 4 MG/ML VIAL IVP PRN (14:30)
--- NOTE | 2018-03-23 14:32 | PCM.SURG1 ---
Surgeon's Initial Post Op Note - Surgeon's Notes Surgeon: Kylah Windows Application Administrator: ZOYA Bird/ 2nd juarez -Cooper Munoz Type of Anesthesia: General Endo, Spinal Anesthesia Administered By: DR Tavares/DR valdovinos Pre-Operative Diagnosis: severe tricompartmental O/A R Knee. tricompartmenyal synovitis. posteriuor capsuylar contracture Operative Findings: severe tricomparmtnetal o/A L knee. tricompartmental; synovitis. posterior capsular release Post-Operative Diagnosis: same Operation Performed: R TKR. posterior capsular release. anterior and posterior synovectomy. computer navigation Specimen/Specimens Removed: synovium/cartilage/bone Estimated Blood Loss: EBL {In ML}: 40 Blood Products Given: N/A Drains Used: No Drains Post-Op Condition: Fair Date of Surgery/Procedure: 03/23/18 Time of Surgery/Procedure: 12:20 (time in room 11:25)
--- NOTE | 2018-03-23 14:40 | PCM.SURG1 ---
Surgeon's Initial Post Op Note - Surgeon's Notes Surgeon: Joy Montero MD Metal Bonding Helper: Roya Tompkins PA-C Type of Anesthesia: General Endo Anesthesia Administered By: Dr. Mathew Pre-Operative Diagnosis: Right knee DJD Operative Findings: tourniquet@ 350mmHg Post-Operative Diagnosis: RIght knee tricompartmental degenerative joint disease. Tricompartmental synovitis. posterior capsule contracture Operation Performed: 1. RIght total knee replacement. 2. ANterior and POsterior synovectomy. 3. Posterior capsular release. 4. Computer navigation with accelerometer Specimen/Specimens Removed: bone. loose bodies x 3 Estimated Blood Loss: EBL {In ML}: 60
--- NOTE | 2018-03-23 15:05 | PCM.ANESB3 ---
Femoral Nerve Block - Femoral Nerve Block Date of Procedure: 03/23/18 Anesthesiologist: Dr. Mathew Pre-Procedure Diagnosis: S/P right total knee arthroplasty Post-Procedure Diagnosis: S/P right total knee arthroplasty Procedure Performed: Femoral Nerve Block Right - Procedure Femoral Nerve Block: The procedure was explained to the patient that it is for the post-operative pain management. Consent was obtained after a thorough discussion with the patient regarding the benefits and possible complications of local anesthetic block of the femoral nerve at the inguinal crease area. The patient was brought to the operating room and standard monitors were applied. Time-out was held with the circulating nurse to confirm the correct surgery and the appropriate block. After the surgery while still under general anesthesia, patient in supine position with fully extended lower extremities and the right groin exposed. The femoral artery was then carefully palpated. The ultrasound transducer was then applied to this area in the transverse plane and the femoral nerve was visualized lateral to the femoral artery and underneath the fascia iliaca. After thorough identification, the inguinal crease area was prepped with Chloraprep solution. At this point, a #20 gauge Stimuplex 4-inch needle was inserted immediately lateral to the femoral artery pulse at the inguinal crease and advanced perpendicularly. The needle was inserted to the ultrasound transducer in-plane towards the femoral nerve in a [id number] direction. Needle advancement was performed carefully under direct ultrasound visualization. Nerve stimulator was used and twitch of the quadriceps muscle was obtained at current of 0.3MA. After negative aspiration, 5cc of 0.25% Bupivacaine with 1:200,000 epinephrine was injected and this was followed with 25cc of 0.25% Bupivacaine with 1:200, 000 epinephrine. Under ultrasound guidance the local anesthetics were observed spreading below fascia iliaca and around the femoral nerve. The needle was removed intact and sterile dressing was applied. The patient had stable vital signs, was awaken from anesthesia and in no apparent distress. The patient tolerated the femoral nerve block well with stable vital signs and was subsequently transported to PACU.
--- NOTE | 2018-03-23 15:09 | PCM.ANESB2 ---
Popliteal Nerve Block - Popliteal Nerve Block Date of Procedure: 03/23/18 Anesthesiologist: Dr. Mathew Pre-Procedure Diagnosis: S/P right total knee arthroplasty Post-Procedure Diagnosis: S/P right total knee arthroplasty Procedure Performed: Popliteal Nerve Block Right - Procedure Popliteal Nerve Block: This procedure was explained to the patient that it is for post-operative pain management. Consent was obtained after a thorough discussion with the patient regarding the benefits and possible complications of local anesthetic block of the sciatic nerve at the popliteal level. The patient was brought to the operating room and standard monitors are applied. Time-out was held with the circulating nurse to confirm the correct surgery and the appropriate block. After the surgery while still under general anesthesia, patient's operative leg was gently raised and supported and the groove in between the biceps femoris and vastus lateralis muscles was carefully palpated. The skin approximately 8cm above the popliteal crease was then marked. The ultrasound transducer was then applied to the posterior thigh approximately 8cm above the popliteal crease in the transverse plane and the sciatic nerve before its division was visualized lateral to the popliteal artery and in between the bicep femoris and semimembranosus/semitendinosus muscles. After identification, the lateral portion of the thigh was prepped with Chloraprep solution. At this point, a # 20 gauge Stimuplex insulated 4 inch needle was inserted into pre-marked area and advanced in a perpendicular direction. The needle was inserted above the ultrasound transducer in-plane towards the sciatic nerve in a [id number] direction. Needle advancement was performed carefully under direct ultrasound visualization. Nerve stimulator was used and dorsiflexion of the right foot was elicited at a current of 0.3MA. After repeated negative aspiration, 5cc of 0.25% bupivacaine with 1:200,000 epinephrine was injected and this was flowed with 25cc of 0.25% bupivacaine with 1:200,000 epinephrine. Under ultrasound guidance the local anesthetics were observed surrounding sciatic nerve . The needle was removed intact and sterile dressing was applied. The patient tolerated the popliteal nerve block well with stable vital signs and was subsequently transported to PACU .
[2018-03-23] MEDS: Morphine 4 MG/ML VIAL IVP PRN ×3 (15:20→15:50)
[2018-03-23] MEDS ORDERED: Bupivacaine HCl 0.25% PF (30 ml) Inj ONE (15:58)
--- NOTE | 2018-03-23 16:00 | RAD ---
PROCEDURE: Right Knee Radiographs. HISTORY: pt in pacu, s/p TKR COMPARISON: None. FINDINGS: The patient is status post total right knee arthroplasty with prosthetic components seen in good alignment. A small amount expected air and fluid is seen within suprapatellar bursa. Skin alphonso are present anteriorly. IMPRESSION: Status post total right knee arthroplasty.
[2018-03-23] MEDS: ceFAZolin 2 GM in Sodium Chloride 0.9% 100 ML IVPB SCH (21:05)
[2018-03-23] MEDS: Pravastatin Sodium 40 MG TAB PO SCH (21:08)
[2018-03-23] MEDS: Lactated Ringer's 1,000 ML IV SCH (21:09)
[2018-03-23] MEDS: Oxycodone/Acetaminophen 5/325 mg Tab PO PRN (21:21)
[2018-03-24] MEDS: ceFAZolin 2 GM in Sodium Chloride 0.9% 100 ML IVPB SCH (03:52)
[2018-03-24] MEDS: Oxycodone/Acetaminophen 5/325 mg Tab PO PRN ×2 (03:53→14:04)
[2018-03-24] MEDS: Lactated Ringer's 1,000 ML IV SCH ×3 (03:55→21:00)
--- NOTE | 2018-03-24 07:44 | CP.PCM.PN ---
Subjective - Date & Time of Evaluation Date of Evaluation: 03/24/18 Time of Evaluation: 10:30 - Subjective Subjective: Patient seen and examined.Feeling well .No acute issues overnight Post op day #1.Pain is controlled Participating with PT Tmax 100 BP on the lower side this AM 99/66 Objective - Vital Signs/Intake and Output Vital Signs (last 24 hours): Temp Pulse Resp BP Pulse Ox 99.7 F H 88 18 95/66 L 96 03/24/18 05:00 03/24/18 05:00 03/24/18 05:00 03/24/18 05:00 03/24/18 05:00 - Medications Medications: Current Medications Acetaminophen (Tylenol 325mg Tab) 650 mg PO Q6 PRN PRN Reason: Fever >100.4 F Docusate Sodium (Colace) 100 mg PO BID [facility] Last Admin: 03/23/18 21:08 Dose: 100 mg Enoxaparin Sodium (Lovenox) 40 mg SC Q24H [facility] PRN Reason: Protocol Ergocalciferol (Drisdol 50,000 Intl Units Cap) 1 cap PO QWK [facility] Sodium Chloride (Sodium Chloride 0.9%) 1,000 mls @ 100 mls/hr IV .Q10H [facility] Ceftriaxone Sodium 1 gm/ (Sodium Chloride) 100 mls @ 100 mls/hr IVPB DAILY [facility] PRN Reason: Protocol Lactated Ringer's (Lactated Ringer's) 1,000 mls @ 100 mls/hr IV .Q10H [facility] Last Admin: 03/24/18 03:55 Dose: 100 mls/hr Morphine Sulfate (Morphine) 2 mg IVP Q4 PRN PRN Reason: Pain, severe (8-10) Ondansetron HCl (Zofran Inj) 4 mg IVP Q6 PRN PRN Reason: Nausea/Vomiting Oxycodone/Acetaminophen (Percocet 5/325 Mg Tab) 1 tab PO Q4 PRN PRN Reason: Pain, moderate (4-7) Stop: 03/26/18 14:31 Last Admin: 03/24/18 03:53 Dose: 1 tab Pantoprazole Sodium (Protonix Ec Tab) 40 mg PO DAILY [facility] Potassium Chloride (Klor-Con 10) 10 meq PO DAILY [facility] Pravastatin Sodium (Pravachol) 40 mg PO HS [facility] Last Admin: 03/23/18 21:08 Dose: 40 mg - Labs Labs: 03/23/18 07:50 03/23/18 07:50 PT 12.1 Seconds (9.8-13.1) 03/23/18 07:50 INR 1.1 (0.9-1.2) 03/23/18 07:50 APTT 35.1 Seconds (25.6-37.1) 03/23/18 07:50 - Constitutional Appears: Non-toxic, No Acute Distress - Head Exam Head Exam: ATRAUMATIC, NORMAL INSPECTION, NORMOCEPHALIC - Eye Exam Eye Exam: EOMI, Normal appearance, PERRL Pupil Exam: NORMAL ACCOMODATION - ENT Exam ENT Exam: Mucous Membranes Moist, Normal Exam - Neck Exam Neck Exam: Full ROM, Normal Inspection - Respiratory Exam Respiratory Exam: Clear to Ausculation Bilateral, NORMAL BREATHING PATTERN. absent: Rales, Rhonchi, Wheezes - Cardiovascular Exam Cardiovascular Exam: REGULAR RHYTHM, RRR, +S1, +S2. absent: JVD - GI/Abdominal Exam GI & Abdominal Exam: Soft, Normal Bowel Sounds. absent: Distended, Guarding, Tenderness, Rebound - Rectal Exam Rectal Exam: Deferred - Extremities Exam Additional comments: right knee dressing in place - Back Exam Back Exam: NORMAL INSPECTION - Neurological Exam Neurological Exam: Alert, Awake, CN II-XII Intact, Oriented x3 - Psychiatric Exam Psychiatric exam: Normal Affect, Normal Mood - Skin Skin Exam: Dry, Intact, Normal Color, Warm Assessment and Plan - Assessment and Plan (Free Text) Assessment: 72 y/o female with PMH HTN, Dyslipidemia and OA presented via [facility] for scheduled right TKR. As per patient she has been having progressive , worsening pain to right knee , severe with ambulation. She has failed outpatient treatment with pain medications, PT and knee injections. She was seen by Dr. Montero in the office who recommended right TKR. At present post op day # 1 , doing well 1. Right knee OA s/p TKR post op day # 1 continue pain management Start PT Incentive spirometry Ortho following DVT prophylaxis with Lovenox Plan for d/c to [facility] 2.HTN on th elower side this Am hold BP meds 3. Dyslipidemia on statin 4. Suspected UTI on rocephin IV 5.Acute blood loss anemia Hgb 10.9 Start ferrous sulfate PO 6. DVT prophylaxis SCD Lovenox
[2018-03-24] MEDS ORDERED: Ergocalciferol 50,000 Intl Units Cap PO SCH (09:00)
[2018-03-24] MEDS: Pantoprazole 40 mg EC Tab PO SCH (09:00)
[2018-03-24] MEDS ORDERED: Enoxaparin 40 mg Syringe SC SCH (09:00)
[2018-03-24] MEDS ORDERED: ENALAPRIL PO SCH (09:00)
[2018-03-24] MEDS ORDERED: HYDROCHLOROTHIAZIDE PO SCH (09:00)
[2018-03-24] MEDS: Potassium Chloride 10 mEq ER Tab PO SCH (09:09)
--- NOTE | 2018-03-24 09:17 | CP.PCM.PN ---
Subjective - Date & Time of Evaluation Date of Evaluation: 03/24/18 Time of Evaluation: 09:10 - Subjective Subjective: NO CHEST PAIN OR SOB FEELS GOOD Objective - Vital Signs/Intake and Output Vital Signs (last 24 hours): Temp Pulse Resp BP Pulse Ox 100.6 F H 76 20 90/54 L 98 03/24/18 08:10 03/24/18 08:10 03/24/18 08:10 03/24/18 08:10 03/24/18 08:10 - Medications Medications: Current Medications Acetaminophen (Tylenol 325mg Tab) 650 mg PO Q6 PRN PRN Reason: Fever >100.4 F Docusate Sodium (Colace) 100 mg PO BID [facility] Last Admin: 03/24/18 09:09 Dose: 100 mg Enoxaparin Sodium (Lovenox) 40 mg SC Q24H [facility] PRN Reason: Protocol Ergocalciferol (Drisdol 50,000 Intl Units Cap) 1 cap PO QWK [facility] Sodium Chloride (Sodium Chloride 0.9%) 1,000 mls @ 100 mls/hr IV .Q10H [facility] Ceftriaxone Sodium 1 gm/ (Sodium Chloride) 100 mls @ 100 mls/hr IVPB DAILY [facility] PRN Reason: Protocol Lactated Ringer's (Lactated Ringer's) 1,000 mls @ 100 mls/hr IV .Q10H [facility] Last Admin: 03/24/18 03:55 Dose: 100 mls/hr Morphine Sulfate (Morphine) 2 mg IVP Q4 PRN PRN Reason: Pain, severe (8-10) Ondansetron HCl (Zofran Inj) 4 mg IVP Q6 PRN PRN Reason: Nausea/Vomiting Oxycodone/Acetaminophen (Percocet 5/325 Mg Tab) 1 tab PO Q4 PRN PRN Reason: Pain, moderate (4-7) Stop: 03/26/18 14:31 Last Admin: 03/24/18 03:53 Dose: 1 tab Pantoprazole Sodium (Protonix Ec Tab) 40 mg PO DAILY [facility] Potassium Chloride (Klor-Con 10) 10 meq PO DAILY [facility] Last Admin: 03/24/18 09:09 Dose: 10 meq Pravastatin Sodium (Pravachol) 40 mg PO HS [facility] Last Admin: 03/23/18 21:08 Dose: 40 mg - Labs Labs: 03/23/18 07:50 03/23/18 07:50 PT 12.1 Seconds (9.8-13.1) 03/23/18 07:50 INR 1.1 (0.9-1.2) 03/23/18 07:50 APTT 35.1 Seconds (25.6-37.1) 03/23/18 07:50 - Respiratory Exam Respiratory Exam: Clear to Ausculation Bilateral - Cardiovascular Exam Cardiovascular Exam: REGULAR RHYTHM, +S1, +S2 Assessment and Plan - Assessment and Plan (Free Text) Assessment: RIGHT TKR HYPERTENSION HYPERLIPIDEMIA Plan: CONTINUE IV FLUIDS, LOVENOX, PRAVACHOL AND PAIN MEDS HOLD ENALAPRIL FOR NOW BLOOD PRESSURE IS ON THE LOW SIDE CBC ORDERED
[2018-03-24 10:49] LABS: HEMOGLOBIN 10.1 g/dL (12.0-16.0); MEAN CELL VOLUME 66.5 fl (81.0-99.0); MEAN CORPUSCULAR HEMOGLOBIN 21.1 pg (27.0-31.0); MEAN CORPUSCULAR HGB CONC 31.7 g/dL (33.0-37.0); RBC 4.8 Mil/uL (3.80-5.20); RED CELL DISTRIBUTION WIDTH 14.9 % (11.5-14.5); WHITE BLOOD COUNT 8.2 K/uL (4.8-10.8)
--- NOTE | 2018-03-24 11:17 | CP.PCM.PN ---
Subjective - Date & Time of Evaluation Date of Evaluation: 03/24/18 Time of Evaluation: 09:00 - Subjective Subjective: Patient states pain is well controlled, denies CP/SOB/dizziness. Still complains of some numbness and weakness to foot from block. Objective - Vital Signs/Intake and Output Vital Signs (last 24 hours): Temp Pulse Resp BP Pulse Ox 97.9 F 70 18 95/60 L 96 03/24/18 09:00 03/24/18 09:00 03/24/18 09:00 03/24/18 09:00 03/24/18 09:00 - Medications Medications: Current Medications Acetaminophen (Tylenol 325mg Tab) 650 mg PO Q6 PRN PRN Reason: Fever >100.4 F Docusate Sodium (Colace) 100 mg PO BID [facility] Last Admin: 03/24/18 09:09 Dose: 100 mg Enoxaparin Sodium (Lovenox) 40 mg SC Q24H [facility] PRN Reason: Protocol Ergocalciferol (Drisdol 50,000 Intl Units Cap) 1 cap PO QWK [facility] Sodium Chloride (Sodium Chloride 0.9%) 1,000 mls @ 100 mls/hr IV .Q10H [facility] Ceftriaxone Sodium 1 gm/ (Sodium Chloride) 100 mls @ 100 mls/hr IVPB DAILY [facility] PRN Reason: Protocol Lactated Ringer's (Lactated Ringer's) 1,000 mls @ 100 mls/hr IV .Q10H [facility] Last Admin: 03/24/18 03:55 Dose: 100 mls/hr Morphine Sulfate (Morphine) 2 mg IVP Q4 PRN PRN Reason: Pain, severe (8-10) Ondansetron HCl (Zofran Inj) 4 mg IVP Q6 PRN PRN Reason: Nausea/Vomiting Oxycodone/Acetaminophen (Percocet 5/325 Mg Tab) 1 tab PO Q4 PRN PRN Reason: Pain, moderate (4-7) Stop: 03/26/18 14:31 Last Admin: 03/24/18 03:53 Dose: 1 tab Pantoprazole Sodium (Protonix Ec Tab) 40 mg PO DAILY [facility] Potassium Chloride (Klor-Con 10) 10 meq PO DAILY [facility] Last Admin: 03/24/18 09:09 Dose: 10 meq Pravastatin Sodium (Pravachol) 40 mg PO HS [facility] Last Admin: 03/23/18 21:08 Dose: 40 mg - Labs Labs: 03/24/18 10:30 03/23/18 07:50 PT 12.1 Seconds (9.8-13.1) 03/23/18 07:50 INR 1.1 (0.9-1.2) 03/23/18 07:50 APTT 35.1 Seconds (25.6-37.1) 03/23/18 07:50 - Extremities Exam Additional comments: +flexion of toes, no ankle DF at this time decreased sensation to dorsum of foot +DP/PT pulses derssing intact, mild swelling sitting in chair with knee flexed Assessment and Plan (1) Primary osteoarthritis of knee Assessment & Plan: POD#1 s/p right TKR d/c planning PT/OT VTE proph d/w Dr. Gabriel, agrees with above Status: Chronic
[2018-03-24] MEDS: Enoxaparin 40 mg Syringe SC SCH (12:48)
[2018-03-24] MEDS: Pravastatin Sodium 40 MG TAB PO SCH (22:21)
[2018-03-25] MEDS: Lactated Ringer's 1,000 ML IV SCH (07:00)
[2018-03-25 08:18] LABS: MEAN CELL VOLUME 66.5 fl (81.0-99.0); MEAN CORPUSCULAR HEMOGLOBIN 21.2 pg (27.0-31.0); MEAN CORPUSCULAR HGB CONC 31.9 g/dL (33.0-37.0); RBC 4.23 Mil/uL (3.80-5.20); WHITE BLOOD COUNT 9.2 K/uL (4.8-10.8)
[2018-03-25 08:56] LABS: BLOOD UREA NITROGEN 9 mg/dl (7-17); CALCIUM 8.8 mg/dL (8.4-10.2); GFR AFRICAN-AMERICAN > 60; GFR NON-AFRICAN AMERICAN > 60
[2018-03-25 09:26] VITALS: BP 126/68; PULSE 86; RESP 19; TEMP 98.4; O2SAT 97
[2018-03-25] MEDS: Oxycodone/Acetaminophen 5/325 mg Tab PO PRN ×3 (09:34→15:10)
[2018-03-25] MEDS: Potassium Chloride 10 mEq ER Tab PO SCH (09:35)
[2018-03-25] MEDS: Pantoprazole 40 mg EC Tab PO SCH (09:35)
--- NOTE | 2018-03-25 09:56 | CP.PCM.DIS ---
Provider - Provider Date of Admission: 03/23/18 08:11 Attending physician: Lisha Mendoza MD Primary care physician: Uriah Montero III, MD Consults: ortho consult cardiology consult PT Time Spent in preparation of Discharge (in minutes): 10 Hospital Course - Lab Results Lab Results: Most Recent Lab Values WBC 9.2 K/uL (4.8-10.8) 03/25/18 04:00 RBC 4.23 Mil/uL (3.80-5.20) 03/25/18 04:00 Hgb 9.0 g/dL (12.0-16.0) L 03/25/18 04:00 Hct 28.2 % (34.0-47.0) L 03/25/18 04:00 MCV 66.5 fl (81.0-99.0) L 03/25/18 04:00 MCH 21.2 pg (27.0-31.0) L 03/25/18 04:00 MCHC 31.9 g/dL (33.0-37.0) L 03/25/18 04:00 RDW 15.0 % (11.5-14.5) H 03/25/18 04:00 Plt Count 133 K/uL (130-400) 03/25/18 04:00 MPV 8.0 fl (7.2-11.7) 03/23/18 07:50 Neut % (Auto) 65.0 % (50.0-75.0) 03/23/18 07:50 Lymph % (Auto) 22.5 % (20.0-40.0) 03/23/18 07:50 Sully % (Auto) 9.8 % (0.0-10.0) 03/23/18 07:50 Eos % (Auto) 2.2 % (0.0-4.0) 03/23/18 07:50 Baso % (Auto) 0.5 % (0.0-2.0) 03/23/18 07:50 Neut # (Auto) 3.3 K/uL (1.8-7.0) 03/23/18 07:50 Lymph # (Auto) 1.1 K/uL (1.0-4.3) 03/23/18 07:50 Sully # (Auto) 0.5 K/uL (0.0-0.8) 03/23/18 07:50 Eos # (Auto) 0.1 K/uL (0.0-0.7) 03/23/18 07:50 Baso # (Auto) 0.0 K/uL (0.0-0.2) 03/23/18 07:50 PT 12.1 Seconds (9.8-13.1) 03/23/18 07:50 INR 1.1 (0.9-1.2) 03/23/18 07:50 APTT 35.1 Seconds (25.6-37.1) 03/23/18 07:50 Sodium 137 mmol/l (132-148) 03/25/18 04:00 Potassium 3.5 MMOL/L (3.6-5.0) L 03/25/18 04:00 Chloride 99 mmol/L (98-107) 03/25/18 04:00 Carbon Dioxide 29 mmol/L (22-30) 03/25/18 04:00 Anion Gap 13 (10-20) 03/25/18 04:00 BUN 9 mg/dl (7-17) 03/25/18 04:00 Creatinine 0.6 mg/dl (0.7-1.2) L 03/25/18 04:00 Est GFR ( Amer) > 60 03/25/18 04:00 Est GFR (Non-Af Amer) > 60 03/25/18 04:00 Random Glucose 134 mg/dL (65-105) H 03/25/18 04:00 Calcium 8.8 mg/dL (8.4-10.2) 03/25/18 04:00 Urine Color Yellow (YELLOW) 03/23/18 07:50 Urine Clarity Slighty-cloudy (Clear) 03/23/18 07:50 Urine pH 6.0 (5.0-8.0) 03/23/18 07:50 Ur Specific [place] 1.011 (1.003-1.030) 03/23/18 07:50 Urine Protein Negative mg/dL (NEGATIVE) 03/23/18 07:50 Urine Glucose (UA) Neg mg/dL (Normal) 03/23/18 07:50 Urine Ketones Negative mg/dL (NEGATIVE) 03/23/18 07:50 Urine Blood Moderate (NEGATIVE) 03/23/18 07:50 Urine Nitrate Negative (NEGATIVE) 03/23/18 07:50 Urine Bilirubin Negative (NEGATIVE) 03/23/18 07:50 Urine Urobilinogen 0.2-1.0 mg/dL (0.2-1.0) 03/23/18 07:50 Ur Leukocyte Esterase Trace Justina/uL (Negative) 03/23/18 07:50 Urine RBC (Auto) 2 /hpf (0-3) 03/23/18 07:50 Urine Microscopic WBC 1 /hpf (0-5) 03/23/18 07:50 Ur Squamous Epith Cells 1 /hpf (0-5) 03/23/18 07:50 Hyaline Casts 3-5 /hpf (0-2) H 03/23/18 07:50 Blood Type A POSITIVE 03/23/18 07:50 Antibody Screen Negative 03/23/18 07:50 BBK History Checked Patient has bt 03/23/18 07:50 - Hospital Course Hospital Course: 72 y/o female with PMH HTN, Dyslipidemia and OA presented via [facility] for scheduled right TKR. As per patient she has been having progressive , worsening pain to right knee , severe with ambulation. She has failed outpatient treatment with pain medications, PT and knee injections. She was seen by Dr. Montero in the office who recommended right TKR. Preop noted to have some LE and bacteria in urine so was started on rocephin Iv empirically At present post op day # 2, doing well. Developed some fever post op but clinically well. Pt eval appreciated and recommended [facility]. Cleared by ortho for discharge . will d /c to [facility] for PT Follow up with Dr Montero in 1 week 1. Right knee OA s/p TKR post op day # 2 continue pain management continue PT Incentive spirometry Ortho following DVT prophylaxis with Lovenox Plan for d/c to [facility] 2.HTN resume keith emeds 3. Dyslipidemia on statin 4. Suspected UTI on rocephin IV . Continue for 3 more days 5.Acute blood loss anemia Hgb 10.9 Started ferrous sulfate PO 6. DVT prophylaxis SCD Discharge Exam - Head Exam Head Exam: ATRAUMATIC, NORMAL INSPECTION, NORMOCEPHALIC - Eye Exam Eye Exam: EOMI, Normal appearance, PERRL Pupil Exam: NORMAL ACCOMODATION - ENT Exam ENT Exam: Mucous Membranes Moist, Normal Exam - Neck Exam Neck exam: Full Rom, Normal Inspection - Respiratory Exam Respiratory Exam: Clear to PA & Lateral, NORMAL BREATHING PATTERN. absent: Rales, Rhonchi, Wheezes - Cardiovascular Exam Cardiovascular Exam: REGULAR RHYTHM, RRR, +S1, +S2. absent: JVD - GI/Abdominal Exam GI & Abdominal Exam: Normal Bowel Sounds, Soft. absent: Distended, Guarding, Rebound, Tenderness - Rectal Exam Rectal Exam: Deferred - Extremities Exam Extremities exam: normal capillary refill, pedal pulses present Additional comments: right knee dressing in place - Back Exam Back exam: NORMAL INSPECTION - Neurological Exam Neurological exam: Alert, CN II-XII Intact, Oriented x3, Reflexes Normal - Psychiatric Exam Psychiatric exam: Normal Affect - Skin Skin Exam: Dry, Intact, Normal Color, Warm Discharge Plan - Follow Up Plan Condition: GOOD Disposition: TRANSF TO SNF Patient education suggested?: Yes Instructions: Total Knee Replacement (DC) Referrals: Uriah Montero III, MD [Primary Care Provider] -
[2018-03-25] MEDS: Sodium Chloride 0.9% 1,000 ML IV SCH ×2 (12:56)
[2018-03-25] MEDS: Enoxaparin 40 mg Syringe SC SCH (13:20)
--- NOTE | 2018-03-27 08:38 | OP ---
PROCEDURE DATE: 03/23/2018 PREOPERATIVE DIAGNOSIS: Severe tricompartmental osteoarthritis of the right knee. POSTOPERATIVE DIAGNOSES: 1. Severe tricompartmental osteoarthritis of the right knee. 2. Tricompartmental synovitis. 3. Posterior capsular contracture. 4. Loose bodies in the posterior compartment. PROCEDURES: 1. Right total knee replacement arthroplasty. 2. Arthrotomy, excision of loose bodies. 3. Arthrotomy and synovectomy. 4. Posterior capsular release. 5. Computer navigation. SURGEON: Uriah Montero MD DIRECTOR RADIATION ONCOLOGY: Cooper Bell PA-C SECOND SURFACE MINER: Elise Null, certified registered nursing certified surgical tech/first assistant. The operation could not have accomplished without the assistance of these certified nursing certified surgical tech/first assistant and TORITO Bell. ANESTHESIA: General regional anesthesia. ANESTHESIA ADMINISTERED BY: Bud Tavares MD and Gurwinder Mathew MD SPECIMENS REMOVED: Synovium, cartilage, bone. BLOOD LOSS: 40 mL BLOOD PRODUCTS GIVEN: None. DRAINS: No drains. POSTOPERATIVE CONDITION: Stable. INCISION TIME: 12:20, time in the room 11:25. OPERATIVE INDICATIONS: Carly Schmitt is a 72-year-old woman well-known to my practice who presents with severe pain and restricted range of motion of the right knee. The patient had undergone successful left total knee replacement arthroplasty. The patient presents at this point in time for right total knee, can no longer withstand the pain, failed conservative management. Pros, cons, risks and benefits were discussed. Possibility of mechanical failure, infection, thromboembolic disease, secondary or tertiary surgery discussed. The patient can no longer withstand the discomfort. OPERATIVE PROCEDURE: After having obtained informed consent, after having identified side, site, and procedure and a critical pause/time-out, after the satisfactory induction of the anesthetic, the patient identified as Carly Schmitt in the supine position with all bony prominences well padded, the lower extremity was prepped and free draped in usual fashion for lower extremity surgery. The tourniquet had been applied was inflated. After exsanguinating the limb using a 6-inch Esmarch bandage, tourniquet, which had been applied, is inflated to 350 mmHg. Approximately 6-inch straight midline approach was made to the knee. The skin incision was carried down through the skin and subcutaneous tissue. Medial arthrotomy was accomplished. Patella was everted. The knee is flexed. Medial and lateral meniscectomies were accomplished. Anterior and posterior cruciate ligaments were excised. The initial osteotomy of the arthroplasty will be accomplished on the tibial side. The tibia is dislocated anteriorly. This having been accomplished, the OrthAlign is affixed to the anterior aspect of the tibia. The sensor and optical accelerometer are placed. At this point in time, the offset is set to the appropriate point on the posterior aspect anterior cruciate ligament insertion. Medial and lateral menisci were registered. The initial cut is set to 0 degrees varus-valgus and 3.5 degrees posterior slope. This having been accomplished, there was found to be a significant medial tibial defect. The depth was set to 1 mm below this. Osteotomy was accomplished and the osteophytes were carefully debrided. This having been accomplished, the osteophytes medially and laterally debrided on the femur. Attention is turned to the femur. The navigation pin was placed above the intercondylar notch. This having been accomplished, the sensor and accelerometer are placed after the accelerometer had been registered. was found. The distal cut of the femur is set to 0 degrees of varus-valgus and 1 degree of flexion. 4:1 block was applied. Size 3.5 anterior and posterior osteotomies were accomplished as well as the chamfers. Lamina cardroom worker was placed. There is found to be evidence of posterior capsular contracture. The posterior capsule was released in a portion of the posterior capsule was excised, portion of the posterior capsule was excised. This having been accomplished, anterior and posterior synovectomy was accomplished as well. It should be noted that the arthrotomy having been accomplished, loose bodies were brought out of the knee posteriorly and they were excised. Loose bodies having been excised, the anterior and posterior synovectomy having been accomplished, the femur is now sized 3.5 femur and the trochlea is middle. This having been accomplished, the tibia was prepared. Guidance rotation of the lateral aspect of the tibial condyle, mid malleolar axis, and medial third of the tibial tuberosity. Proximal tibia was prepared. Trialing is with a #17 poly. Flexion extension balance was found to be excellent with 17 mm poly. Attention is turned to the patella. Freehand patella osteotomy was accomplished. The patella having been sized and . The patellar trial was placed. Flexion/extension balance and patellar balance was found to be excellent. The wound was thoroughly irrigated. The tibia, femur, and patella were prepared. The 3.5 femur is employed, 2 mm tibial tray, 17 mm polyethylene and #2 patella. The components were cemented. Excess cement was debrided. The wound was thoroughly irrigated. Tourniquet is deflated. Closure is in layers, 0 Vicryl, 2-0 Vicryl, alphonso for skin. No Hemovac drain was employed. Jose Mcgovern compression dressing, knee immobilizers applied. Uriah Montero MD
== END 2018-03-25 15:23 | DRG 470 ==
LOC: H.OPSURG 07:10 → H.MEDSURG1 08:11 → H.OPSURG 17:16
PROVIDERS: ADMIT Hospitalist; ATTEND Hospitalist
PROC: 8E0YXBZ Computer Assisted Procedure of Lower Extremity (ICD-10-PCS; 2018-03-23)
PROC: 3E0T3BZ Introduction of Anesthetic Agent into Peripheral Nerves and Plexi, Percutaneous Approach (ICD-10-PCS; 2018-03-23)
PROC: 3E0T3BZ Introduction of Anesthetic Agent into Peripheral Nerves and Plexi, Percutaneous Approach (ICD-10-PCS; 2018-03-23)
PROC: 0SRC0J9 Replacement of Right Knee Joint with Synthetic Substitute, Cemented, Open Approach (ICD-10-PCS; principal; 2018-03-23 10:30)
PROC: 0SBC0ZZ Excision of Right Knee Joint, Open Approach (ICD-10-PCS; 2018-03-23 10:30)
PROC: 0SNC0ZZ Release Right Knee Joint, Open Approach (ICD-10-PCS; 2018-03-23 10:30)
DX: M17.11 Unilateral primary osteoarthritis, right knee (principal); D62 Acute posthemorrhagic anemia; N39.0 Urinary tract infection, site not specified; E78.00 Pure hypercholesterolemia, unspecified; E78.5 Hyperlipidemia, unspecified; I10 Essential (primary) hypertension; M65.9 Synovitis and tenosynovitis, unspecified; Z96.652 Presence of left artificial knee joint; M24.561 Contracture, right knee; M23.41 Loose body in knee, right knee; R50.82 Postprocedural fever